=== PATIENT | female | born 1990 | race African-American/Black ===

== ENCOUNTER 2023-02-13 08:46 | Emergency (ER) | payer OTHER ==
[2023-02-13 08:56] VITALS: BP 127/60; PULSE 62; RESP 20; TEMP 98.2; BMI 48.4
[2023-02-13] MEDS ORDERED: KETOROLAC TROMETHAMINE 10 MG TABLET PO ONE (09:46)
== END 2023-02-13 11:40 | disposition home or self-care (01) ==
LOC: JERFT 08:46
DX: M54.2 Cervicalgia (principal); M54.6 Pain in thoracic spine; R42 Dizziness and giddiness; H53.8 Other visual disturbances; G44.209 Tension-type headache, unspecified, not intractable; M62.830 Muscle spasm of back; V49.40XA Driver injured in collision with unspecified motor vehicles in traffic accident, initial encounter
CPT/HCPCS: 70450-TC; 72050-TC-FY; 72070-TC-FY; 99284-25

== ENCOUNTER 2024-06-28 14:53 | Emergency (ER) | payer OTHER ==
[2024-06-28 15:12] VITALS: TEMP 98.1; BMI 54.8
[2024-06-28] MEDS ORDERED: ACETAMINOPHEN 500 MG TABLET (FP) ONE (16:10)
[2024-06-28] MEDS ORDERED: METHOCARBAMOL 500 MG TABLET ONE (16:10)
[2024-06-28] MEDS: METHOCARBAMOL 750 MG TAB PO ONE (16:15)
[2024-06-28] MEDS: ACETAMINOPHEN 500 MG TABLET (FP) PO ONE (16:15)
[2024-06-28 16:47] LABS: INR 1.03 (0.83-1.09); PROTHROMBIN TIME (PATIENT) 11.6 SEC (9.7-13.0)
[2024-06-28 16:50] LABS: ACTIVATED PTT 32.8 SECONDS (25.2-36.5)
[2024-06-28 16:52] LABS: BASO % 0.3 % (0-2.0); EOS % 1.2 % (0-4.5); HEMOGLOBIN 11.6 GM/dL (10.7-15.3); LYMPH % 13.5 % (8-40); MCH 29.5 pg (25.7-33.7); MCHC 32.3 g/dl (32.0-36.0); MEAN CELL VOLUME 91.1 fl (80-96); MEAN PLT VOLUME 7.3 fl (7.5-11.1); MONO % 6.4 % (3.8-10.2); NEUT % 78.6 % (42.8-82.8); PLATELET COUNT 318 10^3/uL (134-434); RBC 3.95 M/mm3 (3.60-5.2); RDW 13.6 % (11.6-15.6); WHITE BLOOD COUNT 12.6 K/mm3 (4.0-10.0)
[2024-06-28 16:59] LABS: POTASSIUM 3.7 mmol/L (3.5-5.1)
[2024-06-28 17:01] LABS: CALCIUM 9.7 mg/dL (8.5-10.1)
[2024-06-28 17:02] LABS: ALBUMIN 3.3 g/dl (3.4-5.0); BLOOD UREA NITROGEN 11.2 mg/dL (7-18)
[2024-06-28 17:04] LABS: CREATININE 0.7 mg/dL (0.55-1.3)
[2024-06-28 17:06] LABS: BILIRUBIN,TOTAL 0.1 mg/dL (0.2-1)
[2024-06-28 17:07] LABS: TOT PROT 7.3 g/dl (6.4-8.2)
[2024-06-28] MEDS ORDERED: METOCLOPRAMIDE HCL INJECTION 10 MG/2 ML VIAL ONE (17:07)
[2024-06-28] MEDS: METOCLOPRAMIDE HCL INJECTION 10 MG/2 ML VIAL IVPB ONE (17:14)
[2024-06-28] MEDS ORDERED: diazePAM 5 MG TABLET ONE (18:51)
[2024-06-28] MEDS: diazePAM 5 MG TABLET PO ONE (19:01)
[2024-06-28 19:04] VITALS: BP 132/64; PULSE 86; RESP 18
== END 2024-06-28 21:33 | disposition home or self-care (01) ==
LOC: JER 14:53
PROC: 3E033GC Introduction of Other Therapeutic Substance into Peripheral Vein, Percutaneous Approach (ICD-10-PCS; principal; 2024-06-28)
DX: M54.2 Cervicalgia (principal)
CPT/HCPCS: 36415; 70496-TC; 70498-TC; 80053; 83735; 84703; 85025; 85610; 85730; 86850; 86900; 86901; 93005; 93010; 99285-25